=== PATIENT | female | born 1985 ===

== ENCOUNTER 2022-05-22 06:40 | Inpatient (IN) | payer OTHER ==
[~2022-05-22] VITALS: Ht 157.5 cm; Wt 75.7 kg
[2022-05-22] MEDS ORDERED: PRENATAL TABLE1 EAC1 PO (06:49)
[2022-05-25] MEDS ORDERED: NAPR500T14 PO (09:16)
== END 2022-05-25 11:56 | disposition home or self-care (01) | DRG 807 ==
LOC: OB/GYN 06:40 → LDR 06:40 → OB/GYN 05-23 20:35
PROVIDERS: ADMIT Obstetrics & Gynecology; ATTEND Obstetrics & Gynecology
PROC: 4A1HXCZ Monitoring of Products of Conception, Cardiac Rate, External Approach (ICD-10-PCS; 2022-05-22)
PROC: 10E0XZZ Delivery of Products of Conception, External Approach (ICD-10-PCS; principal; 2022-05-23)
PROC: 0HQ9XZZ Repair Perineum Skin, External Approach (ICD-10-PCS; 2022-05-23)
PROC: 0UQMXZZ Repair Vulva, External Approach (ICD-10-PCS; 2022-05-23)
DX: O70.0 First degree perineal laceration during delivery (principal); Z37.0 Single live birth; Z3A.38 38 weeks gestation of pregnancy; Z20.822 Contact with and (suspected) exposure to COVID-19